=== PATIENT | female | born 1965 | race Caucasian/White ===

== ENCOUNTER 2020-09-17 06:24 | Day surgery (SDC) | payer BC ==
[2020-09-17] MEDS ORDERED: LACTATED RINGERS 1,000 ML IV ONE ×2 (06:50→08:21)
[2020-09-17] MEDS ORDERED: fentaNYL 250 MCG/5 ML VIAL ONE (07:48)
[2020-09-17] MEDS ORDERED: MIDAZOLAM 2 MG/2 ML VIAL ONE ×3 (07:48→08:11)
[2020-09-17 09:13] VITALS: BP 90/56
== END 2020-09-17 06:25 | disposition home or self-care (01) ==
LOC: SDS 06:24
PROVIDERS: ATTEND Surgery
DX: Z12.11 Encounter for screening for malignant neoplasm of colon (principal); K63.89 Other specified diseases of intestine; D64.9 Anemia, unspecified; F32.9 Major depressive disorder, single episode, unspecified; F90.9 Attention-deficit hyperactivity disorder, unspecified type; G47.419 Narcolepsy without cataplexy
CPT/HCPCS: 45378; J3010; J7120